=== PATIENT | male | born 1970 | race Asian ===

== ENCOUNTER 2021-11-14 04:00 | Emergency (ER) | payer OTHER ==
[~2021-11-14] VITALS: Ht 172.7 cm; Wt 117.9 kg
[2021-11-14 04:08] VITALS: BP_SYST 162
--- NOTE | 2021-11-14 04:14 | NUR ---
Manny burger in [facility] - 11/14/21 at 0418 by BHARGAVI Patient to [facility] for evaluation. Side rails up.
--- NOTE | 2021-11-14 04:17 | NUR ---
Patient to ER bed H1 for evaluation.
--- NOTE | 2021-11-14 04:18 | NUR ---
Pt awake a/o x4. speech is hoarse. Pt c/o sore throat, left ear radiating to jaw pain and swelling 05/21 since 11/13/21. Also c/o difficulty swallowing. Denies drooling. Able to swallow own spit. Denies sob / difficulty breathing. Denies n/v/d/fever. Awaiting for MD clement. will continue to monitor.
--- NOTE | 2021-11-14 04:21 | NUR ---
Dr Ortega at bedside for eval
[2021-11-14] MEDS ORDERED: DEXAMETHASONE 1 MG TABLET (DECADRON) PO ONE (04:30)
[2021-11-14] MEDS ORDERED: DECADRON 4 MG TABLET ONE (04:36)
[2021-11-14] MEDS ORDERED: MED4 PO (04:45)
[2021-11-14] MEDS ORDERED: FLUT16SP16 NS (04:45)
--- NOTE | 2021-11-14 04:48 | NUR ---
Dr Ortega at bedside giving ACI, pt verbalized understanding. Rx to be filled. To follow up with pmd within the next 2-3 days or return to ed if condition worsens. vs stable. ambulatory with steady gait unassisted. nad.
[2021-11-14 05:02] VITALS: BP_SYST 162
== END 2021-11-14 05:02 | disposition home or self-care (01) ==
LOC: SED 04:00
DX: H68.012 Acute Eustachian salpingitis, left ear (principal)
CPT/HCPCS: 99283; J8540